=== PATIENT | male | born 1995 ===

== ENCOUNTER 2021-03-20 02:54 | Outpatient (CLI) | payer OTHER, SELFPAY ==
--- NOTE | 2021-03-20 14:46 | DI.RAD_ITS ---
Exam(s) XR CHEST 2V PA LATERAL EXAM: XR CHEST 2V PA LATERAL CLINICAL HISTORY: SOB, R06.02. TECHNIQUE: 2D digital imaging was performed. COMPARISON: No exams were available for comparison FINDINGS: Heart size is normal. The mediastinum is not widened. Lungs are clear. No infiltrates nor pleural effusions. IMPRESSION: No acute pulmonary findings. DATA REPOSITORY: RADIATION DOSE DELIVERED:
== END 2021-03-20 02:55 | disposition home or self-care (01) ==
PROVIDERS: Visit Provider Orthopaedic Surgery
DX: R06.02 Shortness of breath (principal)
CPT/HCPCS: 71046

== ENCOUNTER 2021-04-21 03:41 | Outpatient (CLI) | payer OTHER, SELFPAY ==
[2021-04-21] MEDS: Albuterol HFA 18 GM 200 PUFF INH IH (15:45)
[2021-04-21] MEDS: Inhaler, Assist Device 1 EACH MC (15:45)
--- NOTE | 2021-04-21 16:58 | W.PFT ---
Date of service: 04/21/21 Time of Service: 14:28 Pulmonary Function Test Result Requesting Provider Syed Tubbs Interpretation Spirometry: There is no airflow limitation. There is no bronchodilator response. Flow volume loop and volume-time curve are normal in appearance. Impression Normal spirometry. Clinical Correlation therefore is recommended.
== END 2021-04-21 03:42 | disposition home or self-care (01) ==
LOC: RT 03:42
PROVIDERS: Visit Provider Orthopaedic Surgery
DX: R06.02 Shortness of breath (principal)
CPT/HCPCS: 94060